=== PATIENT | male | born 1995 | race Caucasian/White ===

== ENCOUNTER 2019-12-30 13:03 | Emergency (ER) | payer BC, OTHER ==
[~2019-12-30] VITALS: Ht 177.8 cm; Wt 95.3 kg
--- NOTE | 2019-12-30 13:30 | NUR ---
MARTHA MUSE AT BEDSIDE FOR MSE.
[2019-12-30] MEDS: IV NORMAL SALINE 1000 ML BAG IV ONE ×2 (13:45→14:50)
[2019-12-30 13:50] LABS: BASOPHILS # (AUTO) 0.1 K/uL (0.0-8.0); BASOPHILS % (AUTO) 0.6 % (0.0-2.0); EOSINOPHILS # (AUTO) 0.1 K/uL (0.0-0.7); EOSINOPHILS % (AUTO) 1.4 % (0.0-7.0); HEMATOCRIT 38.4 % (36.7-47.1); HEMOGLOBIN 13.8 g/dL (12.5-16.3); LYMPHOCYTES # (AUTO) 2.1 K/uL (20.0-40.0); LYMPHOCYTES % (AUTO) 20.2 % (20.5-51.5); MEAN CORPUSCULAR HGB CONC 36 g/dL (32.5-36.3); MONOCYTES # (AUTO) 0.7 K/uL (2.0-10.0); MONOCYTES % (AUTO) 6.4 % (0.0-11.0); NEUTROPHILS # (AUTO) 7.4 K/uL (1.8-8.9); NEUTROPHILS % (AUTO) 71.4 % (38.5-71.5); PLATELET COUNT (AUTO) 262 K/uL (152-348); RED BLOOD CELL COUNT(AUTO) 4.32 MIL/uL (4.06-5.63); WHITE BLOOD COUNT (AUTO) 10.3 K/uL (3.6-10.2)
[2019-12-30 13:57] LABS: POTASSIUM 3.9 mmol/L (3.5-5.1)
[2019-12-30 14:03] LABS: BILIRUBIN,DIRECT 0.1 mg/dL (0.0-0.2); BILIRUBIN,TOTAL 1.1 mg/dL (0.2-1.0); TOTAL PROTEIN, SERUM 6.7 g/dL (6.4-8.2)
[2019-12-30 15:29] VITALS: BP 112/73
--- NOTE | 2019-12-30 15:29 | NUR ---
Patient discharged to home in stable conditon. Written and verbal after care instructions given. Patient verbalizes understanding of instructions. ALL BELONGINGS W/ PT. PT SELF-AMBULATED W/O DIFFICULTY. 20G IV ACCESS IN LFA REMOVED PRIOR TO D/C - INNER CANNULA INTACT.
== END 2019-12-30 15:34 | disposition home or self-care (01) ==
LOC: ER 13:03
DX: E86.0 Dehydration (principal); R19.7 Diarrhea, unspecified
CPT/HCPCS: 36415; 84443; 85025; 93005; A4663; J7030